=== PATIENT | female | born 1980 | race American Indian/Alaskan Native ===

== ENCOUNTER 2020-02-25 12:22 | Emergency (ER) | payer MEDICAID ==
--- NOTE | 2020-02-25 15:27 | Emergency Department Report ---
ED HPI - General Chief complaint: OB/Uterine Contractions Stated complaint: POSS MISCARRIAGE Time Seen by Provider: 02/25/20 14:15 Source: patient Mode of arrival: Ambulatory Limitations: No Limitations - History of Present Illness Initial comments: 39-year-old -Green[place]ic female patient presents with complaints of left breast brown discharge x1 day and lower abdominal pain x1 week. Patient states she is 7 weeks and has her first SPRAYER MACHINE appointment on 02/29/2020. She denies any vaginal discharge/bleeding, urinary symptoms, fever/chills/sweats, left breast skin changes/swelling, or pain N/V breasts. She reports that she was squeezing the nipple because her breast tenderness has stopped and she was afraid she had had a miscarriage. She states the drainage appeared clearish brown and denies any history of cancer. - Related Data Previous Rx's Medication Instructions Recorded Last Taken Type Acetaminophen/Codeine [Tylenol 1 tab PO Q6H PRN #12 tab 06/04/18 Unknown Rx /Codeine # 3 tab] Chlorhexidine Mouthwash [Peridex] 15 ml MM BID #1 bottle 06/04/18 Unknown Rx Clindamycin [Clindamycin CAP] 300 mg PO Q8H #21 cap 06/04/18 Unknown Rx labetaloL [Labetalol 100mg TAB] 100 mg PO BID 7 Days #14 tablet 02/25/20 Unknown Rx Allergies Allergy/AdvReac Type Severity Reaction Status Date / Time ketorolac [From Toradol] Allergy Hives Verified 06/04/18 12:40 topiramate [From Topamax] Allergy Hives Verified 06/04/18 12:40 tramadol Allergy Hives Verified 06/04/18 12:40 ED Review of Systems ROS: Stated complaint: POSS MISCARRIAGE Other details as noted in HPI Constitutional: denies: chills, fever, malaise, weakness Respiratory: denies: cough, shortness of breath Cardiovascular: denies: chest pain, palpitations, edema, syncope Endocrine: denies: excessive sweating Gastrointestinal: abdominal pain. denies: nausea, vomiting, diarrhea, constipation Genitourinary: denies: urgency, dysuria, frequency, hematuria, discharge, abnormal menses, dyspareunia Skin: denies: rash, lesions, change in color Neurological: denies: headache Hematological/Lymphatic: denies: swollen glands ED Past Medical Hx - Past Medical History Hx Hypertension: Yes Hx Asthma: Yes - Surgical History Past Surgical History?: Yes Additional Surgical History: tonsilectomy - Social History Smoking Status: Current Every Day Smoker - Medications Home Medications: Home Medications Medication Instructions Recorded Confirmed Last Taken Type Acetaminophen/Codeine [Tylenol 1 tab PO Q6H PRN #12 tab 06/04/18 Unknown Rx /Codeine # 3 tab] Chlorhexidine Mouthwash [Peridex] 15 ml MM BID #1 bottle 06/04/18 Unknown Rx Clindamycin [Clindamycin CAP] 300 mg PO Q8H #21 cap 06/04/18 Unknown Rx labetaloL [Labetalol 100mg TAB] 100 mg PO BID 7 Days #14 tablet 02/25/20 Unknown Rx ED Physical Exam - General Limitations: No Limitations General appearance: alert, in no apparent distress - Head Head exam: Present: atraumatic, normocephalic - Eye Eye exam: Present: normal appearance. Absent: scleral icterus - ENT ENT exam: Present: mucous membranes moist - Respiratory Respiratory exam: Present: normal lung sounds bilaterally, other (Left breast is normal in appearance without erythema, swelling, or tenderness to palpation no active drainage is noted from the nipple;). Absent: respiratory distress - Cardiovascular Cardiovascular Exam: Present: regular rate, normal rhythm. Absent: systolic murmur, diastolic murmur, rubs, gallop - GI/Abdominal GI/Abdominal exam: Present: soft, normal bowel sounds. Absent: distended, tenderness, guarding, rebound, rigid - Extremities Exam Extremities exam: Present: normal inspection, other (No swelling noted in the legs bilaterally for the upper extremities). Absent: pedal edema - Back Exam Back exam: Present: normal inspection - Neurological Exam Neurological exam: Present: alert, oriented X3, normal gait - Psychiatric Psychiatric exam: Present: normal affect, anxious - Skin Skin exam: Present: warm, dry, intact, normal color. Absent: rash, cyanosis, diaphoretic, erythema ED Course Vital Signs 02/25/20 02/25/20 12:40 16:31 Temperature 99.4 F Pulse Rate 121 H 83 Respiratory 18 Rate Blood Pressure 191/111 171/104 O2 Sat by Pulse 99 Oximetry ED Medical Decision Making - Lab Data Result diagrams: 02/25/20 16:18 02/25/20 16:18 - Radiology Data Radiology results: report reviewed US OB transvaginal INDICATION / CLINICAL INFORMATION: Lower abdominal pain 7 weeks . TECHNIQUE: Transvaginal. COMPARISON: None available. FINDINGS: UTERUS: Appears within normal limits. GESTATIONAL SAC: Well-defined oval shape and intrauterine in location. YOLK SAC: No significant abnormality. EMBRYO/FETUS: No significant abnormality. - [place]-Rump Length = 1.3 cm = 7 weeks 3 days. - Heart Rate, beats per minute (if present) = 143 beats per minute ADNEXA: Left ovary is surgically removed. No significant abnormality. FREE FLUID: None. ADDITIONAL FINDINGS: None. IMPRESSION: 1. Single, living intrauterine with estimated sonographic age of 7 weeks 3 days. - Medical Decision Making 39-year-old -Green[place] female patient presents with complaints of left breast brown discharge x1 day and lower abdominal pain x1 week. Patient states she is 7 weeks and has her first SPRAYER MACHINE appointment on 02/29/2020. She denies any vaginal discharge/bleeding, urinary symptoms, fever/chills/sweats, left breast skin changes/swelling, or pain N/V breasts. She reports that she was squeezing the nipple because her breast tenderness has stopped and she was afraid she had had a miscarriage. She states the drainage appeared clearish brown and denies any history of cancer. On exam, no abdominal pain is noted and left breast is normal in appearance. Ultrasound shows viable intrauterine of 7 weeks. CBC, CMP, and UA are within normal limits. Patient's blood pressure noted to be significantly elevated upon arrival at 190/111. She reports history of hypertension and states she has been off lisinopril for years. No extremity swelling is noted on exam. No protein noted in urine. She denies history of preeclampsia. Labetalol 100 mg p.o. given-BP now 170/104. Prescription given for home-patient to have further assessment and treatment of blood pressure by her SPRAYER MACHINE on Saturday. She is well-appearing and stable for discharge home. Strict return precautions were discussed in detail with patient who verbalizes understanding Critical care attestation.: If time is entered above; I have spent that time in minutes in the direct care of this critically ill patient, excluding procedure time. ED Disposition Clinical Impression: 7 weeks gestation of , Uncontrolled hypertension Disposition: - TO HOME OR SELFCARE Is pt being admited?: No Condition: Stable Instructions: Hypertension (ED), (ED) Additional Instructions: Please follow-up with your SPRAYER MACHINE as scheduled 02/29/2020. Prescriptions: labetaloL [Labetalol 100mg TAB] 100 mg PO BID 7 Days #14 tablet
[2020-02-25 16:45] LABS: Bilirubin,Urine NEG (Negative); Blood,Urine NEG (Negative); Color,Urine Straw (Yellow); Protein,Urine <15 mg/dL mg/dL (Negative); Urobilinogen,Urine < 2.0 mg/dL (<2.0); WBC,Urine < 1.0 /HPF (0.0-6.0)
--- NOTE | 2020-02-25 16:45 | Ultrasound Report ---
US OB <= 14 weeks fetus INDICATION / CLINICAL INFORMATION: Lower abdominal pain 7 weeks . TECHNIQUE: Transabdominal. COMPARISON: None available. FINDINGS: UTERUS: Appears within normal limits. GESTATIONAL SAC: Well-defined oval shape and intrauterine in location. YOLK SAC: No significant abnormality. EMBRYO/FETUS: No significant abnormality. - [place]-Rump Length = 1.3 cm = 7 weeks 3 days. - Heart Rate, beats per minute (if present) = 143 beats per minute ADNEXA: Left ovary is surgically removed. No significant abnormality. FREE FLUID: None. ADDITIONAL FINDINGS: None. IMPRESSION: 1. Single, living intrauterine with estimated sonographic age of 7 weeks 3 days. Signer Name: Jai Paulson MD Signed: 02/25/2020 4:40 PM Workstation Name: [id number]
[2020-02-25 16:50] LABS: Alanine Aminotransferase 23 units/L (7-56); Albumin 4.3 g/dL (3.9-5); Blood Urea Nitrogen 7 mg/dL (7-17); Calcium 9.8 mg/dL (8.4-10.2); Hemolysis Index 4
--- NOTE | 2020-02-25 16:53 | Ultrasound Report ---
US OB transvaginal INDICATION / CLINICAL INFORMATION: Lower abdominal pain 7 weeks . TECHNIQUE: Transvaginal. COMPARISON: None available. FINDINGS: UTERUS: Appears within normal limits. GESTATIONAL SAC: Well-defined oval shape and intrauterine in location. YOLK SAC: No significant abnormality. EMBRYO/FETUS: No significant abnormality. - [place]-Rump Length = 1.3 cm = 7 weeks 3 days. - Heart Rate, beats per minute (if present) = 143 beats per minute ADNEXA: Left ovary is surgically removed. No significant abnormality. FREE FLUID: None. ADDITIONAL FINDINGS: None. IMPRESSION: 1. Single, living intrauterine with estimated sonographic age of 7 weeks 3 days. Signer Name: Jai Paulson MD Signed: 02/25/2020 4:49 PM Workstation Name: [id number]
[2020-02-25 16:59] LABS: BUN/Creatinine Ratio 12
[2020-02-25 17:03] LABS: Basophils # (Auto) 0.1 K/mm3 (0.0-0.1); Basophils % (Auto) 0.7 % (0.0-1.8); Eosinophils % (Auto) 0.3 % (0.0-4.3); Hematocrit 33.1 % (30.3-42.9); Hemoglobin 11.1 gm/dl (10.1-14.3); Lymphocytes # (Auto) 1.7 K/mm3 (1.2-5.4); Lymphocytes % (Auto) 21.3 % (13.4-35.0); Mean Corpuscular HGB Conc 34 % (30-34); Mean Corpuscular Volume 80 fl (79-97); Monocytes # (Auto) 0.9 K/mm3 (0.0-0.8); Monocytes % (Auto) 10.8 % (0.0-7.3); Platelet Count 302 K/mm3 (140-440); Red Blood Count 4.14 M/mm3 (3.65-5.03); Red Cell Distribution Width 19.1 % (13.2-15.2)
[2020-02-25 17:46] VITALS: BP 164/100
== END 2020-02-25 17:45 | disposition home or self-care (01) ==
LOC: ED 12:22
DX: O16.1 Unspecified maternal hypertension, first trimester (principal); J45.909 Unspecified asthma, uncomplicated; F17.200 Nicotine dependence, unspecified, uncomplicated; Z98.890 Other specified postprocedural states; Z79.899 Other long term (current) drug therapy; Z3A.01 Less than 8 weeks gestation of pregnancy
CPT/HCPCS: 36415; 76801; 76817; 80053; 81001; 84702; 85025

== ENCOUNTER 2020-03-02 22:45 | Emergency (ER) | payer MEDICAID ==
[2020-03-03 00:39] LABS: BUN/Creatinine Ratio 14; Blood Urea Nitrogen 13 mg/dL (7-17); Calcium 9.3 mg/dL (8.4-10.2); Hemolysis Index 2
[2020-03-03 01:01] LABS: Basophils # (Auto) 0.1 K/mm3 (0.0-0.1); Basophils % (Auto) 0.9 % (0.0-1.8); Eosinophils # (Auto) 0.1 K/mm3 (0.0-0.4); Eosinophils % (Auto) 2.2 % (0.0-4.3); Hematocrit 32.4 % (30.3-42.9); Hemoglobin 10.6 gm/dl (10.1-14.3); Lymphocytes # (Auto) 1.8 K/mm3 (1.2-5.4); Lymphocytes % (Auto) 30.5 % (13.4-35.0); Mean Corpuscular HGB Conc 33 % (30-34); Mean Corpuscular Volume 80 fl (79-97); Monocytes # (Auto) 0.8 K/mm3 (0.0-0.8); Monocytes % (Auto) 12.7 % (0.0-7.3); Platelet Count 302 K/mm3 (140-440); Red Blood Count 4.02 M/mm3 (3.65-5.03); Red Cell Distribution Width 19.5 % (13.2-15.2)
--- NOTE | 2020-03-03 03:13 | Emergency Department Report ---
ED Chest Pain HPI - General Chief Complaint: Chest Pain Stated Complaint: CHEST PAIN/LOWER BACK PAIN/SPOTTING/8WKS PREG Time Seen by Provider: 03/03/20 02:01 Source: patient Mode of arrival: Ambulatory Limitations: No Limitations - History of Present Illness Initial Comments: 39-year-old female with a past medical history of hypertension, asthma currently 8 weeks presents to the hospital with 2 complaints. Patient noticed some vaginal spotting earlier today. She complains of one episode. Did have sexual intercourse yesterday. She has mild pelvic pressure. She was here on February 24 had hCG of 73,596 and ultrasound confirming a 7-week 3-day IUP with heartbeat. Patient was unable to follow-up with [facility] SUPER[facility]OR on the because it was rescheduled by the office therefore, patient has not had her first visit. Patient second complaint of chest pain that started around 9:30 PM while getting ready for work. Pain was in the center of the chest, sharp, and radiated to the back. Pain was worse with movement. Lasted for "a split second and then improved". Patient did have some mild shortness of breath during the pain epi sode that has since resolved. She currently denies recurrent chest pain, chest pressure, pleuritic chest pain, dyspnea exertion, calf tenderness, or leg edema Patient is nervous because she is of advanced maternal age and is concerned about baby's wellbeing. She also has hypertension and was started on labetalol during her last ED visit but did not have her evening dose tonight. 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 - Related Data Previous Rx's Medication Instructions Recorded Last Taken Type Acetaminophen/Codeine [Tylenol 1 tab PO Q6H PRN #12 tab 06/04/18 Unknown Rx /Codeine # 3 tab] Chlorhexidine Mouthwash [Peridex] 15 ml MM BID #1 bottle 06/04/18 Unknown Rx Clindamycin [Clindamycin CAP] 300 mg PO Q8H #21 cap 06/04/18 Unknown Rx labetaloL [Labetalol 100mg TAB] 100 mg PO BID 7 Days #60 tablet 03/03/20 Unknown Rx Allergies Allergy/AdvReac Type Severity Reaction Status Date / Time ketorolac [From Toradol] Allergy Hives Verified 06/04/18 12:40 topiramate [From Topamax] Allergy Hives Verified 06/04/18 12:40 tramadol Allergy Hives Verified 06/04/18 12:40 Heart Score - HEART Score History: Slightly suspicious EKG: Normal Age: < 45 Risk factors: > 3 risk factors or hx of atherosclerotic disease Troponin: < normal limit HEART Score: 2 ED Review of Systems ROS: Stated complaint: CHEST PAIN/LOWER BACK PAIN/SPOTTING/8WKS PREG Other details as noted in HPI Comment: All other systems reviewed and negative ED Past Medical Hx - Past Medical History Previous Medical History?: Yes Hx Hypertension: Yes Hx Asthma: Yes - Surgical History Past Surgical History?: Yes Additional Surgical History: tonsilectomy - Social History Smoking Status: Current Every Day Smoker Substance Use Type: None - Medications Home Medications: Home Medications Medication Instructions Recorded Confirmed Last Taken Type Acetaminophen/Codeine [Tylenol 1 tab PO Q6H PRN #12 tab 06/04/18 Unknown Rx /Codeine # 3 tab] Chlorhexidine Mouthwash [Peridex] 15 ml MM BID #1 bottle 06/04/18 Unknown Rx Clindamycin [Clindamycin CAP] 300 mg PO Q8H #21 cap 06/04/18 Unknown Rx labetaloL [Labetalol 100mg TAB] 100 mg PO BID 7 Days #60 tablet 03/03/20 Unknown Rx ED Physical Exam - General Limitations: No Limitations - Other Other exam information: General: No acute distress Head: Atraumatic Eyes: normal appearance ENT: Moist mucous membranes Neck: Normal appearance, no midline tenderness Chest: Clear to auscultation bilaterally CV: Regular rate and rhythm Abdomen: Soft, normal bowel sounds, mild suprapubic tenderness, nondistended, no rebound or guarding Back: Normal inspection Extremity: Normal inspection, full range of motion, no calf tenderness or leg edema Neuro: Alert O x 3, no facial asymmetry, speech clear, no gross motor sensory deficit Psych: Appropriate behavior Skin: No rash ED Course Vital Signs 03/02/20 03/03/20 03/03/20 22:59 02:26 03:25 Temperature 98.8 F Pulse Rate 102 H 77 77 Respiratory 18 16 Rate Blood Pressure 173/89 174/108 Blood Pressure 174/108 [Left] O2 Sat by Pulse 98 Oximetry 03/03/20 04:11 Temperature Pulse Rate 82 Respiratory 16 Rate Blood Pressure Blood Pressure 177/108 [Left] O2 Sat by Pulse Oximetry - Reevaluation(s) Reevaluation #1: 03/03/20 04:28 BP currently 163/109. Patient is anxious to go because her boyfriend has to work in the morning. She does not want a wait for further blood pressure reduction prior to discharge. She had labetalol 100 mg just over an hour ago and missed her evening dose of medications. Patient currently is asymptomatic and has been ambulating in department without complaints of chest pain or shortness of breath. I prefer to wait a little while longer for blood Further blood pressure reduction with patient insist on going home and therefore will be discharged - Procedure Description Procedures done: Patient had a official ultrasound performed on February 24 showing a viable IUP at 7 weeks and 3 days gestation therefore no risk of ectopi c. I Perform bedside ultrasound using transvaginal probe. Once again IUP identified with positive heart heartbeat. No vaginal blood noted on examination MARISA score - Marisa Score Age > 65: (0) No Aspirin use within the Past 7 Days: (0) No 3 or more CAD Risk Factors: (0) No 2 or more Angina events in past 24 hrs: (0) No Known CAD with more than 50% Stenosis: (0) No Elevated Cardiac Markers: (0) No ST Deviation Greater than 0.5mm: (0) No MARISA Score: 0 ED Medical Decision Making - Lab Data Result diagrams: 03/03/20 Unknown 03/02/20 23:59 Lab Results 03/02/20 03/02/20 03/03/20 Range/Units 23:59 23:59 02:26 WBC (4.5-11.0) K/mm3 RBC (3.65-5.03) M/mm3 Hgb (10.1-14.3) gm/dl Hct (30.3-42.9) % MCV (79-97) fl MCH (28-32) pg MCHC (30-34) % RDW (13.2-15.2) % Plt Count (140-440) K/mm3 Lymph % (Auto) (13.4-35.0) % Ralls % (Auto) (0.0-7.3) % Eos % (Auto) (0.0-4.3) % Baso % (Auto) (0.0-1.8) % Lymph # (Auto) (1.2-5.4) K/mm3 Ralls # (Auto) (0.0-0.8) K/mm3 Eos # (Auto) (0.0-0.4) K/mm3 Baso # (Auto) (0.0-0.1) K/mm3 Seg Neutrophils % (40.0-70.0) % Seg Neutrophils # (1.8-7.7) K/mm3 Sodium 138 (137-145) mmol/L Potassium 3.9 (3.6-5.0) mmol/L Chloride 99.4 (98-107) mmol/L Carbon Dioxide 22 (22-30) mmol/L Anion Gap 21 mmol/L BUN 13 (7-17) mg/dL Creatinine 0.9 (0.6-1.2) mg/dL Estimated GFR > 60 ml/min BUN/Creatinine Ratio 14 % Glucose 98 (65-100) mg/dL Calcium 9.3 (8.4-10.2) mg/dL Troponin T < 0.010 < 0.010 (0.00-0.029) ng/mL HCG, Quant 69155 H (0-4) mIU/mL Urine Color (Yellow) Urine Turbidity (Clear) Urine pH (5.0-7.0) Ur Specific [place] (1.003-1.030) Urine Protein (Negative) mg/dL Urine Glucose (UA) (Negative) mg/dL Urine Ketones (Negative) mg/dL Urine Blood (Negative) Urine Nitrite (Negative) Urine Bilirubin (Negative) Urine Urobilinogen (<2.0) mg/dL Ur Leukocyte Esterase (Negative) Urine WBC (Auto) (0.0-6.0) /HPF Urine RBC (Auto) (0.0-6.0) /HPF U Epithel Cells (Auto) (0-13.0) /HPF Urine Mucus /HPF Blood Type Antibody Screen 03/03/20 03/03/20 03/03/20 Range/Units 02:26 Unknown Unknown WBC 6.0 (4.5-11.0) K/mm3 RBC 4.02 (3.65-5.03) M/mm3 Hgb 10.6 (10.1-14.3) gm/dl Hct 32.4 (30.3-42.9) % MCV 80 (79-97) fl MCH 26 L (28-32) pg MCHC 33 (30-34) % RDW 19.5 H (13.2-15.2) % Plt Count 302 (140-440) K/mm3 Lymph % (Auto) 30.5 (13.4-35.0) % Ralls % (Auto) 12.7 H (0.0-7.3) % Eos % (Auto) 2.2 (0.0-4.3) % Baso % (Auto) 0.9 (0.0-1.8) % Lymph # (Auto) 1.8 (1.2-5.4) K/mm3 Ralls # (Auto) 0.8 (0.0-0.8) K/mm3 Eos # (Auto) 0.1 (0.0-0.4) K/mm3 Baso # (Auto) 0.1 (0.0-0.1) K/mm3 Seg Neutrophils % 53.7 (40.0-70.0) % Seg Neutrophils # 3.2 (1.8-7.7) K/mm3 Sodium (137-145) mmol/L Potassium (3.6-5.0) mmol/L Chloride (98-107) mmol/L Carbon Dioxide (22-30) mmol/L Anion Gap mmol/L BUN (7-17) mg/dL Creatinine (0.6-1.2) mg/dL Estimated GFR ml/min BUN/Creatinine Ratio % Glucose (65-100) mg/dL Calcium (8.4-10.2) mg/dL Troponin T (0.00-0.029) ng/mL HCG, Quant (0-4) mIU/mL Urine Color Yellow (Yellow) Urine Turbidity Clear (Clear) Urine pH 5.0 (5.0-7.0) Ur Specific [place] 1.025 (1.003-1.030) Urine Protein <15 mg/dl (Negative) mg/dL Urine Glucose (UA) Neg (Negative) mg/dL Urine Ketones Neg (Negative) mg/dL Urine Blood Neg (Negative) Urine Nitrite Neg (Negative) Urine Bilirubin Neg (Negative) Urine Urobilinogen < 2.0 (<2.0) mg/dL Ur Leukocyte Esterase Neg (Negative) Urine WBC (Auto) 1.0 (0.0-6.0) /HPF Urine RBC (Auto) 1.0 (0.0-6.0) /HPF U Epithel Cells (Auto) 1.0 (0-13.0) /HPF Urine Mucus Few /HPF Blood Type O POSITIVE Antibody Screen Negative - EKG Data -: EKG Interpreted by Me EKG shows normal: sinus rhythm, ST-T waves (no stemi) Rate: normal (88) - EKG Data 03/03/20 03:49 Repeat EKG at 3:41 AM normal sinus rate [address] elevation NH or signs of acute ischemia - Medical Decision Making Patient presents to the hospital atypical chest pain with a unremarkable EKG x2 and troponin negative x2. Patient is not have recurrent chest pain since her episodic episode lasted a few seconds prior to arrival. Patient also expressed anxiety over the wellbeing of her unborn child due to vaginal spotting. Patient had one episode of vaginal spotting without heavy vaginal bleeding and p ersistent intermittent pubic pelvic pressure about . Patient's labs show increase in beta hCG levels. Bedside ultrasound shows intrauterine with heart beat. Patient had an official ultrasound on the confirming IUP with heartbeat as well. Patient will be recommend to have pelvic rest. She will be prescribed a 1 month supply labetalol and encouraged to follow-up with her [facility] SUPERVIS[facility] doctor. Patient's blood type is O+ and therefore she does not require RhoGam Critical Care Time: No Critical care attestation.: If time is entered above; I have spent that time in minutes in the direct care of this critically ill patient, excluding procedure time. ED Disposition Clinical Impression: Uncontrolled hypertension, 8 weeks gestation of , Atypical chest pain, Vaginal bleeding affecting early , Type O blood, Rh positive Disposition: - TO HOME OR SELFCARE Is pt being admited?: No Does the pt Need Aspirin: No Condition: Stable Instructions: Hypertension (ED), Chest Pain (ED), Threatened Miscarriage (ED) Additional Instructions: Take the medication as prescribed. Also take vitamins. 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 return if symptoms worsen as indicated by your discharge instructions. Prescriptions: labetaloL [Labetalol 100mg TAB] 100 mg PO BID 7 Days #60 tablet Referrals: [facility]ACH[facility] OPERATOR [Provider Group] - 3-5 Days Time of Disposition: 04:34
[2020-03-03 03:22] LABS: Bilirubin,Urine NEG (Negative); Blood,Urine NEG (Negative); Color,Urine Yellow (Yellow); Mucus,Urine FEW /HPF; Protein,Urine <15 mg/dL mg/dL (Negative); Urobilinogen,Urine < 2.0 mg/dL (<2.0)
[2020-03-03 04:12] VITALS: BP 177/108
== END 2020-03-03 04:50 | disposition home or self-care (01) ==
LOC: ED 22:45
DX: O20.8 Other hemorrhage in early pregnancy (principal); O16.1 Unspecified maternal hypertension, first trimester; O26.891 Other specified pregnancy related conditions, first trimester; R07.89 Other chest pain; J45.909 Unspecified asthma, uncomplicated; F17.200 Nicotine dependence, unspecified, uncomplicated; Z3A.08 8 weeks gestation of pregnancy; Z90.89 Acquired absence of other organs; Z79.899 Other long term (current) drug therapy; Z88.8 Allergy status to other drugs, medicaments and biological substances
CPT/HCPCS: 36415; 80048; 81001; 84484; 84702; 85025; 86850; 86900; 86901; 93005

== ENCOUNTER 2020-11-03 23:11 | Emergency (ER) | payer MEDICAID | END 2020-11-03 23:34 | disposition left against medical advice (07) | LOC: ED 23:11 ==